=== PATIENT | male | born 1970 | race African-American/Black ===

== ENCOUNTER 2017-10-07 16:09 | Emergency (ER) | payer MEDICAID ==
[~2017-10-07] VITALS: Ht 175.3 cm; Wt 82.0 kg
[2017-10-07 16:29] VITALS: BP 109/73
== END 2017-10-07 17:28 | disposition home or self-care (01) ==
LOC: ER 17:27
DX: B85.0 Pediculosis due to Pediculus humanus capitis (principal)
CPT/HCPCS: 99282